=== PATIENT | male | born 1990 | race Two or more races ===

== ENCOUNTER 2024-09-23 17:07 | Emergency (ER) | payer OTHER ==
[~2024-09-23] VITALS: Ht 177.8 cm; Wt 113.4 kg
[~2024-09-23 17:07] MED LIST: DOXY-326 PO
[2024-09-23] MEDS ORDERED: LIDOCAINE 5% (PATCH) 1 EA PATCH TP ONE (18:25)
[2024-09-23] MEDS ORDERED: KETOROLAC TROMETHAMINE INJ 30 MG/ML VIAL ONE (18:25)
[2024-09-23] MEDS ORDERED: CYCLOBENZAPRINE 10 MG TABLET ONE (18:26)
[2024-09-23] MEDS: KETOROLAC TROMETHAMINE INJ 30 MG/ML VIAL IM ONE (18:33)
[2024-09-23] MEDS: LIDOCAINE 5% (PATCH) 1 EA PATCH TP SCH (18:34)
[2024-09-23] MEDS: CYCLOBENZAPRINE 10 MG TABLET PO ONE (18:34)
[2024-09-23] MEDS ORDERED: LIDO30AD10 TP (19:26)
[2024-09-23] MEDS ORDERED: HYDR-3976 GT (19:26)
[2024-09-23] MEDS ORDERED: CYCL15CA23 PO (19:26)
[2024-09-23] MEDS ORDERED: IBUP-1955 PO (19:26)
[2024-09-23 19:48] VITALS: BP 134/89; TEMP 98; O2SAT 99
== END 2024-09-23 19:49 | disposition home or self-care (01) ==
LOC: ER 17:07
DX: S22.31XA Fracture of one rib, right side, initial encounter for closed fracture (principal); I10 Essential (primary) hypertension; F17.210 Nicotine dependence, cigarettes, uncomplicated; R05.9 Cough, unspecified; X58.XXXA Exposure to other specified factors, initial encounter; Y93.89 Activity, other specified; Y92.89 Other specified places as the place of occurrence of the external cause; Y99.8 Other external cause status
CPT/HCPCS: 99283; 96372; 71100; J1885

== ENCOUNTER 2025-08-27 15:51 | Emergency (ER) | payer OTHER ==
[~2025-08-27] VITALS: Ht 180.3 cm; Wt 105.7 kg
[~2025-08-27 15:51] MED LIST changes: +CYCL15CA23 PO; +HYDR-3976 GT; +IBUP-1955 PO; +LIDO30AD10 TP
[2025-08-27] MEDS ORDERED: TDAP [DIPH/PERTUSSIS/TET] 0.5 ML VIAL IM ONE (18:06)
[2025-08-27] MEDS: TDAP [DIPH/PERTUSSIS/TET] 0.5 ML VIAL IM ONE (18:11)
[2025-08-27 18:13] VITALS: BP 146/86; TEMP 98.4; O2SAT 98
[2025-08-27] MEDS ORDERED: IBUP-1490 PO (18:32)
[2025-08-27] MEDS ORDERED: ACET-2030 PO (18:32)
== END 2025-08-27 19:57 | disposition home or self-care (01) ==
LOC: ER 17:12
DX: S02.2XXA Fracture of nasal bones, initial encounter for closed fracture (principal); F17.200 Nicotine dependence, unspecified, uncomplicated; X58.XXXA Exposure to other specified factors, initial encounter; Y93.89 Activity, other specified; Y92.89 Other specified places as the place of occurrence of the external cause; Y99.8 Other external cause status
CPT/HCPCS: 70160-TC; 90715